=== PATIENT | male | born 1985 | race African-American/Black ===

== ENCOUNTER 2019-09-13 18:11 | Emergency (ER) | payer OTHER ==
[2016-08-25 10:02] VITALS: BP 158/81
[~2019-09-13] VITALS: Ht 172.7 cm; Wt 102.1 kg
[~2019-09-13 18:11] MED LIST: FAMO-63 PO
[2019-09-13] MEDS ORDERED: ERYTHROMYCIN 0.5% OPHTH OINTMENT 1GM TUBE. OD ONE (19:00)
[2019-09-13] MEDS ORDERED: TETRACAINE 0.5% OPHTH SOLUTION 4ML BOTTLE. OD ONE (19:00)
[2019-09-13] MEDS ORDERED: FLUORESCEIN OPHTH TEST STRIP. OD ONE (19:00)
[2019-09-13] MEDS ORDERED: ERYT1OIN6 OP (19:14)
--- NOTE | 2019-09-13 19:14 | PHYS DOC ---
Past Medical History Past Medical History: Kidney Stone Past Surgical History: No Surgical History Alcohol Use: Occasionally Drug Use: Marijuana Adult General Chief Complaint Chief Complaint: FOREIGN BODY/EYES HPI HPI 34-year-old male presents with report of right eye discomfort upon driving home from work today. Patient reports he thinks he might have gotten something in his eye. Patient reports he had been cutting some metal studs and also "chipping away "at some drywall and paint earlier. Denies contact use. Denies seeing at actual foreign body. Review of Systems Review of Systems Constitutional: Denies fever or chills Eyes: Reports right eye redness and pain HENT: Denies nasal congestion or sore throat Integument: Denies rash or skin lesions Complete systems were reviewed and found to be within normal limits, except as documented in this note. Current Medications Current Medications Current Medications Medications (Trade) Dose Ordered Sig/Eber Start Time Stop Time Status Last Admin Dose Admin Erythromycin (Romycin) 0.25 inch 1X ONCE 09/13/19 19:00 09/13/19 19:07 DC Fluorescein Sodium (Ful-Rajni) 1 strip 1X ONCE 09/13/19 19:00 09/13/19 19:07 DC Tetracaine HCl (Tetracaine) 2 drop 1X ONCE 09/13/19 19:00 09/13/19 19:07 DC Allergies Allergies Allergies Coded Allergies Type Severity Reaction Last Updated Verified No Known Drug Allergies 08/25/16 No Physical Exam Physical Exam Constitutional: Well developed, well nourished, no acute distress, non-toxic appearance HENT: Normocephalic, atraumatic, oropharynx moist Eyes: PERRL, EOMI, conjunctiva slightly infected to right eye, no discharge, fluorescein uptake noted under Wood's lamp at 9 o'clock position, right eyelid everted without notation of foreign body Neck: Normal range of motion, supple Lungs & Thorax: Atraumatic, no respiratory distress Skin: Warm, dry, no erythema, no rash Neurologic: Alert and oriented X 3, no focal deficits noted Psychologic: Affect normal, judgement normal Current Patient Data Vital Signs Vital Signs Date Time Temp Pulse Resp B/P (MAP) Pulse Ox O2 Delivery O2 Flow Rate FiO2 09/13/19 19:00 99.1 81 16 145/89 (107) 98 Room Air 99.1 EKG EKG [] Radiology/Procedures Radiology/Procedures [] Course & Med Decision Making Course & Med Decision Making Patient presents with history of present illness and physical exam concerning for corneal abrasion. Fluorescein uptake noted under Wood lamp. No retained fragment noted. Eyelids everted without signs of foreign body. Empiric anabolic ointment applied. Patient stable for discharge with outpatient follow-up with PCP/ophthalmology. Discussed findings and plan with patient, who acknowledges understanding and agreement. Dragon Disclaimer Dragon Disclaimer This electronic medical record was generated, in whole or in part, using a voice recognition dictation system. Departure Departure Impression: Primary Impression: Corneal abrasion Disposition: HOME, SELF-CARE Condition: STABLE Referrals: NO PCP (PCP) Patient Instructions: Eye - Corneal Abrasion, [id number] Scripts Erythromycin Base (Erythromycin) 1 Gm Oint...g. 0.5 INCH OP QID for 5 Days, MISC Prov: MICHAEL MCKINNEY DO 09/13/19 Problem Qualifiers Primary Impression: Corneal abrasion Encounter type: initial encounter Laterality: right Qualified Codes: S05.01XA - Injury of conjunctiva and corneal abrasion without foreign body, right eye, initial encounter MICHAEL MCKINNEY DO Sep 13, 2019 19:14
== END 2019-09-13 19:49 | disposition home or self-care (01) ==
LOC: ER 18:11
DX: S05.01XA Injury of conjunctiva and corneal abrasion without foreign body, right eye, initial encounter (principal); X58.XXXA Exposure to other specified factors, initial encounter; Y93.89 Activity, other specified; Y92.89 Other specified places as the place of occurrence of the external cause; Y99.8 Other external cause status
CPT/HCPCS: 99283